=== PATIENT | male | born 1960 | race Caucasian/White ===

== ENCOUNTER 2017-09-14 18:33 | Emergency (ER) | payer MEDICAID, OTHER ==
[~2017-09-14] VITALS: Ht 188 cm; Wt 92.5 kg
--- NOTE | 2017-09-14 18:58 | NUR ---
Dr. Diaz at bedside for MSE.
[2017-09-14] MEDS ORDERED: IV NORMAL SALINE 1000 ML BAG IV ONE (19:30)
[2017-09-14 19:42] LABS: BASOPHILS # (AUTO) 0.1 K/uL (0.0-8.0); BASOPHILS % (AUTO) 2.7 % (0.0-2.0); EOSINOPHILS % (AUTO) 0.5 % (0.0-7.0); HEMATOCRIT 32.7 % (36.7-47.1); LYMPHOCYTES # (AUTO) 1.1 K/uL (20.0-40.0); LYMPHOCYTES % (AUTO) 23.3 % (20.5-51.5); MEAN CORPUSCULAR HEMOGLOBIN 20.1 uug (23.8-33.4); MEAN CORPUSCULAR HGB CONC 31 g/dL (32.5-36.3); MEAN CORPUSCULAR VOLUME 65.6 fL (73.0-96.2); MONOCYTES # (AUTO) 0.3 K/uL (2.0-10.0); MONOCYTES % (AUTO) 6.4 % (0.0-11.0); NEUTROPHILS # (AUTO) 3.1 K/uL (1.8-8.9); NEUTROPHILS % (AUTO) 67.1 % (38.5-71.5); PLATELET COUNT (AUTO) 272 K/uL (152-348); RED BLOOD CELL COUNT(AUTO) 4.99 MIL/uL (4.06-5.63); WHITE BLOOD COUNT (AUTO) 4.6 K/uL (3.6-10.2)
[2017-09-14 19:50] LABS: CREATININE 1.2 mg/dL (0.6-1.3); POTASSIUM 3.5 mmol/L (3.5-5.1)
[2017-09-14 19:55] LABS: BILIRUBIN,DIRECT 0.2 mg/dL (0.0-0.2); BILIRUBIN,TOTAL 0.9 mg/dL (0.2-1.0); TOTAL PROTEIN, SERUM 7.9 g/dL (6.4-8.2)
--- NOTE | 2017-09-14 20:24 | NUR ---
Gave pt cold pack for his back pain.
[2017-09-14] MEDS ORDERED: HYDROCODONE/APAP 5-325MG TABLET PO ONE (20:30)
[2017-09-14] MEDS ORDERED: HYDROCODONE/APAP 5-325MG TABLET ONE (20:44)
--- NOTE | 2017-09-14 21:20 | NUR ---
Pt c/o back pain from pulled back yesterday. Pt did not want to take med now. Pt given NORCO to take home, per .
--- NOTE | 2017-09-14 21:55 | NUR ---
Supine HR=72, 143/88 Sitting HR=76, 114/64 Standing NC=595, 120/77 MD duran
--- NOTE | 2017-09-14 22:06 | NUR ---
Removed IV intact, site okay, bandaged. Gave pt d/c instructions, verbalized understanding.
== END 2017-09-14 22:08 | disposition home or self-care (01) ==
LOC: ER 18:33
DX: R42 Dizziness and giddiness (principal); D64.9 Anemia, unspecified; I48.0 Paroxysmal atrial fibrillation; K62.5 Hemorrhage of anus and rectum; E78.00 Pure hypercholesterolemia, unspecified
CPT/HCPCS: 36415; 70030-TC; 71045; 85025; 85730; 86850; 86900; 86901; 93005; A4663; J7030

== ENCOUNTER 2017-11-21 16:13 | Emergency (ER) | payer MEDICAID, OTHER ==
[~2017-11-21] VITALS: Ht 188 cm; Wt 99.8 kg
[2017-11-21] MEDS ORDERED: NORMAL SALINE FLUSH 10 ML DISP.SYRIN ONE (16:35)
[2017-11-21] MEDS ORDERED: IOHEXOL 350 100 ML INFUS..BTL ONE (16:35)
[2017-11-21] MEDS ORDERED: CELLULOSE,OXIDIZED 2x3 MC ONE (16:35)
[2017-11-21] MEDS ORDERED: IV NORMAL SALINE 100 ML ONE (16:36)
[2017-11-21 16:50] LABS: BASOPHILS # (AUTO) 0.1 K/uL (0.0-8.0); BASOPHILS % (AUTO) 1.2 % (0.0-2.0); EOSINOPHILS % (AUTO) 0.6 % (0.0-7.0); HEMATOCRIT 37.5 % (36.7-47.1); HEMOGLOBIN 11.6 g/dL (12.5-16.3); LYMPHOCYTES # (AUTO) 1.3 K/uL (20.0-40.0); LYMPHOCYTES % (AUTO) 16.3 % (20.5-51.5); MEAN CORPUSCULAR HEMOGLOBIN 20.6 uug (23.8-33.4); MEAN CORPUSCULAR HGB CONC 31 g/dL (32.5-36.3); MEAN CORPUSCULAR VOLUME 66.6 fL (73.0-96.2); MONOCYTES # (AUTO) 0.4 K/uL (2.0-10.0); MONOCYTES % (AUTO) 5.2 % (0.0-11.0); NEUTROPHILS # (AUTO) 6.3 K/uL (1.8-8.9); NEUTROPHILS % (AUTO) 76.7 % (38.5-71.5); PLATELET COUNT (AUTO) 219 K/uL (152-348); RED BLOOD CELL COUNT(AUTO) 5.62 MIL/uL (4.06-5.63); WHITE BLOOD COUNT (AUTO) 8.1 K/uL (3.6-10.2)
[2017-11-21 16:57] LABS: CREATININE 1.3 mg/dL (0.6-1.3); POTASSIUM 4.3 mmol/L (3.5-5.1)
--- NOTE | 2017-11-21 16:57 | NUR ---
PT IS IN ROOM #1B. DR PEGUERO EVALUATED THE PT.
[2017-11-21 17:03] LABS: BILIRUBIN,DIRECT 0.1 mg/dL (0.0-0.2); BILIRUBIN,TOTAL 0.4 mg/dL (0.2-1.0); TOTAL PROTEIN, SERUM 7.8 g/dL (6.4-8.2)
[2017-11-21 17:26] LABS: BAND % (MANUAL) 5 % (0-10); EOSINOPHILS % (MANUAL) 1 % (0-8); LYMPHOCYTES % (MANUAL) 15 % (20-40); MONOCYTES % (MANUAL) 3 % (2-10); NEUTROPHILS % (MANUAL) 76 % (42-75)
--- NOTE | 2017-11-21 19:05 | NUR ---
PT WAS D/C TO HOME. D/C INSTRUCTIONS GIVEN TO THE PT. NO S/S OF DISTRESS AT THIS TIME.
[2017-11-21 19:08] VITALS: BP 132/72
== END 2017-11-21 19:09 | disposition home or self-care (01) ==
LOC: ER 16:14
DX: R51 Headache (principal); I48.0 Paroxysmal atrial fibrillation; E78.00 Pure hypercholesterolemia, unspecified
CPT/HCPCS: 36415; 70030-TC; 70496; 85025; 85730; 93005; A4663; J3490; Q9967

== ENCOUNTER 2018-01-01 14:03 | Emergency (ER) | payer OTHER ==
[~2018-01-01] VITALS: Ht 188 cm; Wt 99.8 kg
[2018-01-01] MEDS ORDERED: METOCLOPRAMIDE HCL 10 MG/2 ML VIAL IM ONE (14:45)
[2018-01-01] MEDS ORDERED: diphenhydrAMINE 50 MG/1 ML VIAL IM ONE (14:45)
[2018-01-01] MEDS ORDERED: diphenhydrAMINE 50 MG/1 ML VIAL ONE (15:05)
[2018-01-01] MEDS ORDERED: METOCLOPRAMIDE HCL 10 MG/2 ML VIAL ONE (15:05)
[2018-01-01 15:08] LABS: BASOPHILS # (AUTO) 0.1 K/uL (0.0-8.0); BASOPHILS % (AUTO) 1.3 % (0.0-2.0); CREATININE 1.3 mg/dL (0.6-1.3); EOSINOPHILS # (AUTO) 0.1 K/uL (0.0-0.7); EOSINOPHILS % (AUTO) 1.1 % (0.0-7.0); HEMOGLOBIN 12.6 g/dL (12.5-16.3); LYMPHOCYTES # (AUTO) 1.4 K/uL (20.0-40.0); LYMPHOCYTES % (AUTO) 27.6 % (20.5-51.5); MEAN CORPUSCULAR HEMOGLOBIN 22.1 uug (23.8-33.4); MEAN CORPUSCULAR HGB CONC 32 g/dL (32.5-36.3); MEAN CORPUSCULAR VOLUME 68.4 fL (73.0-96.2); MONOCYTES # (AUTO) 0.3 K/uL (2.0-10.0); MONOCYTES % (AUTO) 6.2 % (0.0-11.0); NEUTROPHILS # (AUTO) 3.2 K/uL (1.8-8.9); NEUTROPHILS % (AUTO) 63.8 % (38.5-71.5); PLATELET COUNT (AUTO) 218 K/uL (152-348); POTASSIUM 4.5 mmol/L (3.5-5.1); RED BLOOD CELL COUNT(AUTO) 5.71 MIL/uL (4.06-5.63)
--- NOTE | 2018-01-01 16:20 | NUR ---
mse completed. pt d/c'd home, aci/rx x1 given. pt also given copies of lab tests and ekg. pt ambulated w/o diff/took all belongings.
[2018-01-01 16:22] VITALS: BP 132/88
== END 2018-01-01 16:23 | disposition home or self-care (01) ==
LOC: ER 14:03
DX: I65.22 Occlusion and stenosis of left carotid artery (principal); I48.0 Paroxysmal atrial fibrillation; E78.00 Pure hypercholesterolemia, unspecified
CPT/HCPCS: 36415; 85025; 93005; A4663; J1200; J2765

== ENCOUNTER 2019-04-20 14:22 | Emergency (ER) | payer MEDICAID, OTHER ==
[~2019-04-20] VITALS: Ht 188 cm; Wt 99.8 kg
[2019-04-20] MEDS ORDERED: KETOROLAC TROMETHAMINE 60 MG INJ IM ONE ×2 (15:05→15:15)
--- NOTE | 2019-04-20 15:46 | NUR ---
Patient discharged to home in stable conditon. Written and verbal after care instructions given to patient and girlfriend. Patient & girlfriend verbalized understanding of instructions.
== END 2019-04-20 15:46 | disposition home or self-care (01) ==
LOC: ER 14:22
DX: S39.012A Strain of muscle, fascia and tendon of lower back, initial encounter (principal); E78.00 Pure hypercholesterolemia, unspecified; X58.XXXA Exposure to other specified factors, initial encounter; Y93.89 Activity, other specified; Y92.89 Other specified places as the place of occurrence of the external cause; Y99.8 Other external cause status
CPT/HCPCS: 72100; 96372; 99283; J1885; A4663

== ENCOUNTER 2019-08-12 10:58 | Emergency (ER) | payer MEDICAID ==
[~2019-08-12] VITALS: Ht 188 cm; Wt 99.8 kg
--- NOTE | 2019-08-12 11:18 | NUR ---
Dr Diaz at the bedside for MSE.
--- NOTE | 2019-08-12 11:52 | NUR ---
Patient discharged to home in stable conditon. Written and verbal after care instructions given. Patient verbalizes understanding of instructions.
[2019-08-12 11:54] VITALS: BP 127/88
== END 2019-08-12 11:55 | disposition home or self-care (01) ==
LOC: ER 10:58
DX: B02.9 Zoster without complications (principal); Z88.0 Allergy status to penicillin
CPT/HCPCS: A4663

== ENCOUNTER 2019-08-20 11:20 | Emergency (ER) | payer MEDICAID ==
[~2019-08-20] VITALS: Ht 188 cm; Wt 96.2 kg
[2019-08-20] MEDS: IV NORMAL SALINE 1000 ML BAG IV ONE (11:53)
[2019-08-20 12:09] LABS: BASOPHILS # (AUTO) 0.1 K/uL (0.0-8.0); BASOPHILS % (AUTO) 1.4 % (0.0-2.0); EOSINOPHILS # (AUTO) 0.1 K/uL (0.0-0.7); EOSINOPHILS % (AUTO) 1.9 % (0.0-7.0); HEMATOCRIT 36.3 % (36.7-47.1); HEMOGLOBIN 11.3 g/dL (12.5-16.3); LYMPHOCYTES # (AUTO) 1.7 K/uL (20.0-40.0); LYMPHOCYTES % (AUTO) 34.2 % (20.5-51.5); MEAN CORPUSCULAR HEMOGLOBIN 22.9 uug (23.8-33.4); MEAN CORPUSCULAR HGB CONC 31 g/dL (32.5-36.3); MONOCYTES # (AUTO) 0.3 K/uL (2.0-10.0); MONOCYTES % (AUTO) 6.5 % (0.0-11.0); NEUTROPHILS # (AUTO) 2.9 K/uL (1.8-8.9); PLATELET COUNT (AUTO) 256 K/uL (152-348); RED BLOOD CELL COUNT(AUTO) 4.91 MIL/uL (4.06-5.63); WHITE BLOOD COUNT (AUTO) 5.1 K/uL (3.6-10.2)
[2019-08-20 12:20] LABS: BILIRUBIN,DIRECT 0.1 mg/dL (0.0-0.2); BILIRUBIN,TOTAL 0.3 mg/dL (0.2-1.0); CREATININE 1.1 mg/dL (0.6-1.3); POTASSIUM 3.9 mmol/L (3.5-5.1)
--- NOTE | 2019-08-20 12:43 | NUR ---
Patient discharged to home in stable conditon. Written and verbal after care instructions given. Patient verbalizes understanding of instructions. Patient ambulated with stable gait. IV removed. Catheter intact and site benign. Pressure and 4x4 gauze applied to site. No bleeding noted.
[2019-08-20 12:44] VITALS: BP 138/91
== END 2019-08-20 12:44 | disposition home or self-care (01) ==
LOC: ER 11:20
DX: D64.9 Anemia, unspecified (principal); R55 Syncope and collapse; I48.91 Unspecified atrial fibrillation; E78.5 Hyperlipidemia, unspecified; Z88.0 Allergy status to penicillin
CPT/HCPCS: 36415; 70030-TC; 71045; 85025; 85730; 93005; A4663; J7030